=== PATIENT | female | born 1955 | race Caucasian/White ===

== ENCOUNTER 2021-03-04 22:53 | Emergency (ER) | payer OTHER ==
[~2021-03-04] VITALS: Ht 167.6 cm; Wt 74.8 kg
[2021-03-04 23:04] VITALS: BP 130/73
[2021-03-04 23:38] LABS: URINE BILIRUBIN NEGATIVE (Negative); URINE BLOOD NEGATIVE (Negative); URINE CLARITY CLEAR; URINE COLOR YELLOW; URINE GLUCOSE-RANDOM NEGATIVE (Negative); URINE KETONES NEGATIVE (Negative); URINE NITRITE-REFLEX NEGATIVE (Negative); URINE PROTEIN NEGATIVE (Negative); URINE UROBILINOGEN 0.2 E.U./dl (0.2-1.0)
[2021-03-04 23:39] LABS: URINE LEUKOCYTES-REFLEX 3+ (Negative)
[2021-03-04 23:41] LABS: ABSOLUTE BASOPHILS 0.1 thou/uL (0.0-0.2); ABSOLUTE EOSINOPHILS 0.2 thou/uL (0.0-0.7); ABSOLUTE LYMPHOCYTES 2.3 thou/uL (0.8-5.3); ABSOLUTE MONOCYTES 0.7 thou/uL (0.0-1.2); ABSOLUTE NEUTROPHILS 4.1 thou/uL (1.6-8.1); EOSINOPHILS 2.7 %; HEMATOCRIT 33.7 % (37.0-47.0); HEMOGLOBIN 11.8 gm/dL (12.0-15.0); LYMPHOCYTES 31.6 %; MCH 30.8 pg (26.0-34.0); MCHC 35.1 g/dL (28.0-37.0); MCV 87.7 fL (80.0-100.0); MONOCYTES 9.1 %; MPV 9.7 fl. (7.2-11.1); NUCLEATED RBCS 0 /100WBC; PLATELET COUNT* 157 thou/uL (150-400); POLYS 55.6 %; RBC 3.85 mil/uL (4.20-5.00); WBC 7.4 thou/uL (4.0-11.0)
[2021-03-04 23:48] LABS: CREATININE 0.7 mg/dL (0.6-1.3); POTASSIUM 3.3 mmol/L (3.5-5.1)
[2021-03-04 23:53] LABS: TOTAL BILIRUBIN 0.2 mg/dL (<0.1-1.0); TOTAL PROTEIN 6.5 g/dL (6.4-8.2)
[2021-03-05 00:09] LABS: CASTS None Seen /LPF (None Seen); MUCUS 0-3 Light strn/LPF (None Seen); SQUAMOUS 0-3 Few /LPF (0-3)
[2021-03-05 00:10] LABS: BACTERIA-REFLEX 1-9 Few /HPF (None Seen); CRYSTALS None Seen /LPF (None Seen); URINE RBC 0-2 Rare /HPF (0-2); URINE WBC-REFLEX 6-15 Few /HPF (0-5)
--- NOTE | 2021-03-05 09:33 | EKG ---
[place] [address] ELECTROCARDIOGRAM REPORT Name: FREDI MENON Room: [facility]#: [id number] Admission: 03/04/21 Attend Phys: Discharge: 03/05/21 Date of : 51 Date of Service: 03/04/212304 Report #: [id number] THIS REPORT FOR: //name// [facility] ED Test Date: 2021-03-04 Test Time: 23:05:21 Pat Name: FREDI MENON Department: Room: Gender: F [place] Turner: : 1955 Requested By: Radha Denise Order Number: [id number] MD: Osmar Mak Measurements Intervals [place] Rate: 69 P: 23 HI: 130 QRS: 31 QRSD: 82 T: 13 QT: 429 QTc: 460 Interpretive Statements Sinus rhythm RsR' in V1 No previous ECG available for comparison Electronically Signed On 03-05-2021 9:33:08 CDT by Osmar Mak [email or web address] <ELECTRONICALLY SIGNED> By: Osmar Mak MD, [facility] [id number] 04 Osmar Mak MD, [facility] /EPI
== END 2021-03-05 00:07 | disposition left against medical advice (07) ==
LOC: M.ERS 22:53
PROVIDERS: Personal Emergency Response Attendant
DX: R10.13 Epigastric pain (principal); Z90.49 Acquired absence of other specified parts of digestive tract; Z90.710 Acquired absence of both cervix and uterus